=== PATIENT | male | born 1945 | race African-American/Black ===

== ENCOUNTER 2021-07-19 12:07 | Inpatient (IN) | payer MEDICARE, BC ==
[~2021-07-19] VITALS: Ht 165.1 cm; Wt 61.4 kg
[2021-07-20] MEDS ORDERED: PEPCID20 MG PO (01:14)
[2021-07-20] MEDS ORDERED: LASIX40 MG PO (01:15)
[2021-07-20] MEDS ORDERED: NATURE'S BLEND F1 MG PO (01:15)
[2021-07-20] MEDS ORDERED: MIRTAZAPINE15 M1 PO (01:16)
[2021-07-20] MEDS ORDERED: MULTIPLE VITAM1 EAC2 PO (01:17)
[2021-07-20] MEDS ORDERED: EC NAPROSYN500 MG PO (01:18)
[2021-07-20] MEDS ORDERED: K-LOR 20MEQ20 ME1 PO (01:19)
[2021-07-20] MEDS ORDERED: PROAIR HFA8.5 GM INH (01:21)
[2021-07-20] MEDS ORDERED: AMLODIPINE BESYL5 MG PO (01:22)
[2021-07-20 13:44] VITALS: BP 130/60
[2021-07-20 13:57] LABS: BILIRUBIN Negative (Negative); BLOOD Negative (Negative); CLARITY Clear (Clear); COLOR Yellow (Yellow); GLUCOSE Negative (Negative); KETONE Negative (Negative); LEUKO ESTERASE Negative (Negative); NITRITE Negative (Negative); UROBILINOGEN 0.2 E.U./dl (0.0-1.0)
[2021-07-20 14:14] LABS: BACTERIA TRACE; EPITHELIAL CELLS 0-2; RBC 0-2 rbc/hpf (0-2); WBC 0-2 wbc/hpf (0-5)
[2021-07-20 20:00] VITALS: BP 125/64
[2021-07-21 07:06] LABS: BASO % 0.6 % (0.0-1.0); EOS # 0.3 10*3/uL (0.0-0.4); EOS % 4.9 % (1.0-4.0); HEMATOCRIT 43.9 % (42.0-52.0); LYMPH % 47.1 % (27.0-41.0); MEAN CELL VOLUME 93.2 fl (80.0-94.0); MEAN CORPUSCULAR HGB 29.7 pg (27.0-31.0); MEAN CORPUSCULAR HGB CONC 31.9 g/dl (33.0-37.0); MEAN PLATELET VOLUME 12.1 fl (9.6-12.3); MONO # 0.9 10*3/uL (0.1-1.0); MONO % 13.7 % (3.0-9.0); NEUT # 2.1 10*3/uL (2.3-7.9); NEUT % 33.1 % (47.0-73.0); PLATELET COUNT AUTOMATED 236 10*3/uL (130-400); RED BLOOD COUNT 4.71 10*6/uL (4.50-5.90); RED CELL DISTRI WIDTH 14.1 % (0-14.5); WHITE BLOOD COUNT 6.3 10*3/uL (4.8-10.8)
[2021-07-21 07:27] LABS: POTASSIUM 5.3 mmol/L (3.5-5.1)
[2021-07-21 07:47] LABS: ALBUMIN 3.5 gm/dl (3.1-4.5); CREATININE 1.51 mg/dL (0.70-1.30); TOTAL PROTEIN 7.1 gm/dL (6.4-8.2); VALPROIC ACID (DEPAKENE) 43.6 ug/ml (50-100)
[2021-07-21 07:52] LABS: THYROID STIM HORMONE (HS) 9.76 uIU/ml (0.358-4.75)
[2021-07-21 08:09] VITALS: BP 117/73
[2021-07-21 08:51] LABS: VITAMIN D, 25-HYDROXY 25.4 ng/mL (30-100)
[2021-07-21 20:00] VITALS: BP 140/64
[2021-07-22 07:06] LABS: BUN 31 mg/dl (7-24); CHLORIDE 112 mmol/L (98-107); CREATININE 1.29 mg/dL (0.70-1.30); POTASSIUM 5.2 mmol/L (3.5-5.1); SODIUM 140 mmol/L (136-145)
[2021-07-22 08:00] VITALS: BP 136/67
[2021-07-22 19:32] VITALS: BP 141/61
[2021-07-23 07:57] LABS: BUN 39 mg/dl (7-24); CHLORIDE 111 mmol/L (98-107); CREATININE 1.38 mg/dL (0.70-1.30); POTASSIUM 4.3 mmol/L (3.5-5.1); SODIUM 140 mmol/L (136-145)
[2021-07-23 12:11] VITALS: BP 116/58
[2021-07-23 20:00] VITALS: BP 136/62
[2021-07-24 07:34] VITALS: BP 111/73
[2021-07-24 20:00] VITALS: BP 151/67
[2021-07-25 07:26] LABS: BUN 34 mg/dl (7-24); CHLORIDE 110 mmol/L (98-107); POTASSIUM 4.7 mmol/L (3.5-5.1); SODIUM 141 mmol/L (136-145)
[2021-07-25 08:28] VITALS: BP 116/81
[2021-07-25 20:00] VITALS: BP 127/63
[2021-07-26 09:00] VITALS: BP 129/52
[2021-07-26 10:50] LABS: BASO % 0.4 % (0.0-1.0); EOS # 0.1 10*3/uL (0.0-0.4); EOS % 0.7 % (1.0-4.0); HEMATOCRIT 39.6 % (42.0-52.0); LYMPH % 23.1 % (27.0-41.0); MEAN CELL VOLUME 94.1 fl (80.0-94.0); MEAN CORPUSCULAR HGB 30.4 pg (27.0-31.0); MEAN CORPUSCULAR HGB CONC 32.3 g/dl (33.0-37.0); MEAN PLATELET VOLUME 12.3 fl (9.6-12.3); MONO # 1.3 10*3/uL (0.1-1.0); NEUT # 5.1 10*3/uL (2.3-7.9); NEUT % 60.4 % (47.0-73.0); PLATELET COUNT AUTOMATED 229 10*3/uL (130-400); RED BLOOD COUNT 4.21 10*6/uL (4.50-5.90); RED CELL DISTRI WIDTH 14.2 % (0-14.5); WHITE BLOOD COUNT 8.5 10*3/uL (4.8-10.8)
[2021-07-26 11:03] LABS: ALBUMIN 3.5 gm/dl (3.1-4.5); CREATININE 1.5 mg/dL (0.70-1.30); POTASSIUM 5.6 mmol/L (3.5-5.1)
[2021-07-26 11:05] LABS: TOTAL PROTEIN 7.3 gm/dL (6.4-8.2)
[2021-07-26 20:00] VITALS: BP 120/50
[2021-07-27 06:38] LABS: ALBUMIN 3.2 gm/dl (3.1-4.5); CHLORIDE 109 mmol/L (98-107); POTASSIUM 4.7 mmol/L (3.5-5.1); SODIUM 140 mmol/L (136-145)
[2021-07-27 06:41] LABS: BUN 42 mg/dl (7-24)
[2021-07-27 08:20] VITALS: BP 122/74
[2021-07-27 20:00] VITALS: BP 118/69
[2021-07-28 08:08] VITALS: BP 135/67
[2021-07-28 20:00] VITALS: BP 123/50
[2021-07-29 07:51] VITALS: BP 125/48
[2021-07-29] MEDS ORDERED: VITAMIN D3125 MC1 PO (09:37)
[2021-07-29] MEDS ORDERED: RISPERIDONE1 MG PO (09:37)
[2021-07-29] MEDS ORDERED: RIVASTIGMINE1 EAC2 T (09:37)
[2021-07-29] MEDS ORDERED: MIRTAZAPINE15 M2 PO (09:37)
[2021-07-29] MEDS ORDERED: HYDROXYZINE HCL25 MG PO (09:37)
[2021-07-29] MEDS ORDERED: RISPERIDONE0.5 MG PO ×2 (09:37)
[2021-07-29] MEDS ORDERED: MEMANTINE HCL10 MG PO (09:37)
== END 2021-07-29 12:57 | DRG 883 ==
LOC: 3N 12:07
PROVIDERS: Counselor Professional; Internal Medicine; Registered Nurse; Student in an Organized Health Care Education/Training Program; ADMIT Psychiatry & Neurology Psychiatry; ATTEND Psychiatry & Neurology Psychiatry
DX: F63.81 Intermittent explosive disorder (principal); Z20.822 Contact with and (suspected) exposure to COVID-19; I10 Essential (primary) hypertension; K21.9 Gastro-esophageal reflux disease without esophagitis; J44.9 Chronic obstructive pulmonary disease, unspecified; E87.5 Hyperkalemia; E11.9 Type 2 diabetes mellitus without complications; G30.9 Alzheimer's disease, unspecified; F02.80 Dementia in other diseases classified elsewhere, unspecified severity, without behavioral disturbance, psychotic disturbance, mood disturbance, and anxiety; F33.3 Major depressive disorder, recurrent, severe with psychotic symptoms

== ENCOUNTER 2021-12-05 17:29 | Emergency (ER) | payer MEDICARE, BC, MEDICAID ==
[~2021-12-05] VITALS: Wt 73.0 kg
[~2021-12-05 17:29] MED LIST: AMLODIPINE BESYL5 MG PO; DULCOLAX10 M1 R; EC NAPROSYN500 MG PO; HALDOL20 MG PO; HYDROXYZINE HCL25 MG PO; Haldol Concen2 MG/ML IM; K-LOR 20MEQ20 ME1 PO; LASIX40 MG PO; MEMANTINE HCL10 MG PO; MILK OF MA400 MG/5 M PO; MIRTAZAPINE15 M1 PO; MIRTAZAPINE15 M2 PO; MULTIPLE VITAM1 EAC2 PO; NATURE'S BLEND F1 MG PO; PEPCID20 MG PO; PROAIR HFA8.5 GM INH; QUETIAPINE FUMA25 MG PO; QUETIAPINE FUMA50 M1 PO; RISPERIDONE0.5 MG PO; RISPERIDONE1 MG PO; RIVASTIGMINE1 EAC2 T; VITAMIN D3125 MC1 PO
[2021-12-05] MEDS ORDERED: SEROQUEL50 MG PO (18:38)
[2021-12-05] MEDS ORDERED: NAMENDA-28 PO (18:39)
[2021-12-05] MEDS ORDERED: GEODON20 MG/1 ML IM (18:40)
[2021-12-05 19:02] LABS: BASO % 0.3 % (0.0-1.0); EOS # 0.1 10*3/uL (0.0-0.4); EOS % 1.6 % (1.0-4.0); HEMATOCRIT 42.4 % (42.0-52.0); LYMPH # 2.2 10*3/uL (1.3-4.4); LYMPH % 31.9 % (27.0-41.0); MEAN CORPUSCULAR HGB 29.5 pg (27.0-31.0); MEAN CORPUSCULAR HGB CONC 32.8 g/dl (33.0-37.0); MEAN PLATELET VOLUME 10.8 fl (9.6-12.3); MONO % 14.7 % (3.0-9.0); NEUT # 3.5 10*3/uL (2.3-7.9); NEUT % 50.5 % (47.0-73.0); PLATELET COUNT AUTOMATED 265 10*3/uL (130-400); RED BLOOD COUNT 4.71 10*6/uL (4.50-5.90); RED CELL DISTRI WIDTH 13.2 % (0-14.5)
[2021-12-05 19:18] LABS: ALKALINE PHOSPHATASE 115 U/L (45-117); BUN 21 mg/dl (7-24); CHLORIDE 109 mmol/L (98-107); CREATININE 1.24 mg/dL (0.70-1.30); POTASSIUM 4.6 mmol/L (3.5-5.1); SGOT/AST 18 IU/L (3-35); SGPT/ALT 25 U/L (12-78); SODIUM 138 mmol/L (136-145); TOTAL PROTEIN 7.7 gm/dL (6.4-8.2)
[2021-12-05 19:22] LABS: ACETAMINOPHEN (TYLENOL) < 5.0 ug/ml (10-30); ETHYL ALCOHOL < 3.0 mg/dl (<3)
[2021-12-05 19:33] LABS: BILIRUBIN Negative (Negative); BLOOD Negative (Negative); CLARITY Clear (Clear); COLOR Yellow (Yellow); GLUCOSE Negative (Negative); KETONE Negative (Negative); LEUKO ESTERASE Trace (Negative); NITRITE Negative (Negative); PH 5.5 (4.5-8.0); SPECIFIC GRAVITY 1.015 (1.001-1.030); UROBILINOGEN 0.2 E.U./dl (0.0-1.0)
[2021-12-05 19:39] LABS: URINE AMPHETAMINES < 1000 (1000ng/ml); URINE BARBITURATES < 200 (200ng/ml); URINE BENZODIAZEPINES < 200 (200ng/ml); URINE CANNABINOIDS (THC) < 50 (50ng/ml); URINE COCAINE < 300 (300ng/ml); URINE METHADONE < 300 (300ng/ml); URINE OPIATES < 300 (300ng/ml)
[2021-12-05 19:43] LABS: BACTERIA TRACE; EPITHELIAL CELLS 0-2; MUCOUS TRACE
[2021-12-05 19:44] LABS: URINE PHENCYCLIDINE < 25 (25ng/ml)
== END 2021-12-05 22:24 ==
LOC: ED 17:29
PROVIDERS: Physician Assistant
DX: F63.81 Intermittent explosive disorder (principal)

== ENCOUNTER 2021-12-05 17:55 | Inpatient (IN) | payer MEDICARE, BC, MEDICAID ==
[~2021-12-05] VITALS: Ht 160 cm; Wt 70.8 kg
[2021-12-05] MEDS ORDERED: SEROQUEL50 MG PO (18:38)
[2021-12-05] MEDS ORDERED: NAMENDA-28 PO (18:39)
[2021-12-05] MEDS ORDERED: GEODON20 MG/1 ML IM (18:40)
[2021-12-05 20:00] VITALS: BP 151/73
[2021-12-05 20:05] VITALS: BP 151/73
[2021-12-06 06:40] LABS: BASO % 0.3 % (0.0-1.0); EOS # 0.1 10*3/uL (0.0-0.4); EOS % 1.2 % (1.0-4.0); HEMATOCRIT 43.3 % (42.0-52.0); LYMPH # 2.5 10*3/uL (1.3-4.4); LYMPH % 43.5 % (27.0-41.0); MEAN CELL VOLUME 88.9 fl (80.0-94.0); MEAN CORPUSCULAR HGB 28.7 pg (27.0-31.0); MEAN CORPUSCULAR HGB CONC 32.3 g/dl (33.0-37.0); MEAN PLATELET VOLUME 10.5 fl (9.6-12.3); MONO % 16.7 % (3.0-9.0); NEUT # 2.1 10*3/uL (2.3-7.9); NEUT % 37.3 % (47.0-73.0); PLATELET COUNT AUTOMATED 268 10*3/uL (130-400); RED BLOOD COUNT 4.87 10*6/uL (4.50-5.90); RED CELL DISTRI WIDTH 13.2 % (0-14.5); WHITE BLOOD COUNT 5.8 10*3/uL (4.8-10.8)
[2021-12-06 06:59] LABS: ALKALINE PHOSPHATASE 114 U/L (45-117); BUN 19 mg/dl (7-24); CHLORIDE 109 mmol/L (98-107); CHOLESTEROL 229 mg/dL (<200); CREATININE 1.25 mg/dL (0.70-1.30); LDL CHOLESTEROL 155 mg/dL (9-159); POTASSIUM 4.2 mmol/L (3.5-5.1); SGOT/AST 15 IU/L (3-35); SGPT/ALT 22 U/L (12-78); SODIUM 138 mmol/L (136-145); TOTAL PROTEIN 7.2 gm/dL (6.4-8.2); TRIGLYCERIDES 165 mg/dl (<150)
[2021-12-06 07:00] VITALS: BP 148/66
[2021-12-06 07:55] LABS: VITAMIN D, 25-HYDROXY 37.9 ng/mL (30-100)
[2021-12-06 19:34] VITALS: BP 130/85
[2021-12-07 07:50] VITALS: BP 134/67
[2021-12-07 20:00] VITALS: BP 134/59
[2021-12-08 06:57] VITALS: BP 108/77
[2021-12-08 20:00] VITALS: BP 140/72
[2021-12-09 07:22] VITALS: BP 137/68
[2021-12-09 20:00] VITALS: BP 136/60
[2021-12-10 08:00] VITALS: BP 136/55
[2021-12-10 20:00] VITALS: BP 140/80
[2021-12-11 07:29] VITALS: BP 125/56
[2021-12-11 20:00] VITALS: BP 136/77
[2021-12-12 08:00] VITALS: BP 133/58
[2021-12-12 20:00] VITALS: BP 114/56
[2021-12-13 08:00] VITALS: BP 145/55
[2021-12-13 10:55] LABS: BASO % 0.6 % (0.0-1.0); EOS # 0.2 10*3/uL (0.0-0.4); EOS % 2.3 % (1.0-4.0); HEMATOCRIT 42.1 % (42.0-52.0); LYMPH # 2.7 10*3/uL (1.3-4.4); LYMPH % 38.7 % (27.0-41.0); MEAN CELL VOLUME 91.9 fl (80.0-94.0); MEAN CORPUSCULAR HGB 29.5 pg (27.0-31.0); MEAN CORPUSCULAR HGB CONC 32.1 g/dl (33.0-37.0); MEAN PLATELET VOLUME 11.3 fl (9.6-12.3); MONO % 13.9 % (3.0-9.0); NEUT # 2.9 10*3/uL (2.3-7.9); NEUT % 42.7 % (47.0-73.0); PLATELET COUNT AUTOMATED 243 10*3/uL (130-400); RED BLOOD COUNT 4.58 10*6/uL (4.50-5.90); RED CELL DISTRI WIDTH 13.3 % (0-14.5); WHITE BLOOD COUNT 6.8 10*3/uL (4.8-10.8)
[2021-12-13 11:43] LABS: BUN 31 mg/dl (7-24); CHLORIDE 111 mmol/L (98-107); POTASSIUM 4.2 mmol/L (3.5-5.1); SGOT/AST 16 IU/L (3-35); SGPT/ALT 28 U/L (12-78); SODIUM 138 mmol/L (136-145)
[2021-12-13 11:45] LABS: ALKALINE PHOSPHATASE 109 U/L (45-117); TOTAL PROTEIN 7.6 gm/dL (6.4-8.2)
[2021-12-13 19:21] VITALS: BP 148/77
[2021-12-14 08:00] VITALS: BP 126/78; BP 126/98
[2021-12-14] MEDS ORDERED: LORAZEPAM0.5 MG PO (09:49)
[2021-12-14 11:00] LABS: BASO % 0.6 % (0.0-1.0); EOS # 0.1 10*3/uL (0.0-0.4); EOS % 1.9 % (1.0-4.0); HEMATOCRIT 40.3 % (42.0-52.0); LYMPH # 2.5 10*3/uL (1.3-4.4); MEAN CELL VOLUME 89.4 fl (80.0-94.0); MEAN CORPUSCULAR HGB 28.8 pg (27.0-31.0); MEAN CORPUSCULAR HGB CONC 32.3 g/dl (33.0-37.0); MEAN PLATELET VOLUME 10.9 fl (9.6-12.3); MONO % 13.8 % (3.0-9.0); NEUT # 3.4 10*3/uL (2.3-7.9); NEUT % 46.9 % (47.0-73.0); PLATELET COUNT AUTOMATED 253 10*3/uL (130-400); RED BLOOD COUNT 4.51 10*6/uL (4.50-5.90); RED CELL DISTRI WIDTH 13.1 % (0-14.5); WHITE BLOOD COUNT 7.2 10*3/uL (4.8-10.8)
[2021-12-14 11:17] LABS: ALKALINE PHOSPHATASE 96 U/L (45-117); BUN 30 mg/dl (7-24); CHLORIDE 112 mmol/L (98-107); CREATININE 1.18 mg/dL (0.70-1.30); POTASSIUM 4.7 mmol/L (3.5-5.1); SGOT/AST 13 IU/L (3-35); SGPT/ALT 26 U/L (12-78); SODIUM 139 mmol/L (136-145); TOTAL PROTEIN 6.7 gm/dL (6.4-8.2)
[2021-12-14 12:41] LABS: BILIRUBIN Negative (Negative); BLOOD Negative (Negative); CLARITY Clear (Clear); COLOR Yellow (Yellow); GLUCOSE Negative (Negative); KETONE Negative (Negative); LEUKO ESTERASE Negative (Negative); NITRITE Negative (Negative); SPECIFIC GRAVITY 1.015 (1.001-1.030); UROBILINOGEN 0.2 E.U./dl (0.0-1.0)
[2021-12-14 12:56] LABS: MUCOUS TRACE
[2021-12-14 20:00] VITALS: BP 124/59
[2021-12-15 08:00] VITALS: BP 150/65
[2021-12-15 20:00] VITALS: BP 142/66
[2021-12-16 08:00] VITALS: BP 108/51
[2021-12-16 10:00] VITALS: BP 126/64
[2021-12-16 20:00] VITALS: BP 111/88
[2021-12-17 07:24] VITALS: BP 129/60
[2021-12-17 20:00] VITALS: BP 151/77
[2021-12-18 06:56] VITALS: BP 108/58
[2021-12-18 19:15] VITALS: BP 128/60
[2021-12-19 07:21] VITALS: BP 129/55
[2021-12-19] MEDS ORDERED: OLANZAPINE5 MG PO ×2 (08:52)
[2021-12-19] MEDS ORDERED: RIVASTIGMINE1 EAC2 T (08:52)
[2021-12-19] MEDS ORDERED: MEMANTINE HCL10 MG PO (08:52)
[2021-12-19] MEDS ORDERED: HYDROXYZINE HCL25 MG PO (08:52)
[2021-12-19] MEDS ORDERED: MIRTAZAPINE15 M2 PO (08:52)
== END 2021-12-19 14:10 | DRG 885 ==
LOC: CANPREIN → 3N 17:55
PROVIDERS: Counselor Professional; Registered Nurse; ADMIT Psychiatry & Neurology Psychiatry; ATTEND Psychiatry & Neurology Psychiatry
DX: F33.3 Major depressive disorder, recurrent, severe with psychotic symptoms (principal); F63.81 Intermittent explosive disorder; F02.81 Dementia in other diseases classified elsewhere, unspecified severity, with behavioral disturbance; G30.9 Alzheimer's disease, unspecified; D64.9 Anemia, unspecified; E87.8 Other disorders of electrolyte and fluid balance, not elsewhere classified; I10 Essential (primary) hypertension; E78.5 Hyperlipidemia, unspecified; K21.9 Gastro-esophageal reflux disease without esophagitis; J44.9 Chronic obstructive pulmonary disease, unspecified; Z79.899 Other long term (current) drug therapy